=== PATIENT | female | born 1955 | race Caucasian/White ===

== ENCOUNTER 2016-10-12 04:56 | Inpatient (IN) | payer BC, OTHER ==
[2016-10-06 12:05] LABS: HEMATOCRIT 38.3 % (37.0-47.0); HEMOGLOBIN 12.8 gm/dL (12.0-15.0); MCH 29.8 pg (26.0-34.0); MCHC 33.3 g/dL (28.0-37.0); MCV 89.6 fL (80.0-100.0); RBC 4.27 mil/uL (4.20-5.00); RDW 14.4 % (10.5-14.5); WBC 7.8 thou/uL (4.0-11.0)
[2016-10-06 12:14] LABS: CALCIUM 9.3 mg/dL (8.5-10.1); CREATININE 0.8 mg/dL (0.6-1.0); POTASSIUM 4.4 mmol/L (3.5-5.1)
[2016-10-06 12:22] LABS: URINE BILIRUBIN NEGATIVE (Negative); URINE BLOOD NEGATIVE (Negative); URINE COLOR YELLOW; URINE GLUCOSE-RANDOM* NEGATIVE (Negative); URINE KETONES NEGATIVE (Negative); URINE LEUKOCYTES-REFLEX NEGATIVE (Negative); URINE PROTEIN (DIPSTICK) NEGATIVE (Negative); URINE UROBILINOGEN 0.2 E.U./dl (0.2-1.0)
[~2016-10-12] VITALS: Ht 172.7 cm; Wt 102.1 kg
[2016-10-12] VITALS (8 sets, daily range): BP systolic 110–132; BP diastolic 54–77
--- NOTE | ~2016-10-12 | O ---
[facility] [place] [address] OPERATIVE REPORT Name: MIKA DOWNS Room #: 547-P ADM IN M.R.#: [id number] Admission: 10/12/16 Attend Phys: Mervin Godwin MD Discharge: Date of : 51 Report #: [id number] THIS REPORT FOR: //name// CC: Mervin Godwin [facility] unknown DATE OF SERVICE: 10/12/2016 DATE OF SERVICE: 10/12/2016 PREOPERATIVE DIAGNOSIS: Degenerative arthritis, left hip. POSTOPERATIVE DIAGNOSIS: Degenerative arthritis, left hip. PROCEDURE: Left total hip arthroplasty. SURGEON: Mervin Godwin M.D. INDICATIONS: This 61-year-old female has problems with degenerative arthritis and already has left total knee and previous arthroscopic procedure on the operative site. She has now progressive left hip pain with clinical radiographic findings consistent with moderately severe degenerative arthritis. She has tried conservative measure without much benefit. We discussed treatment options and potential risks and benefits. She and her understand well and prefer to proceed with left total hip arthroplasty. DESCRIPTION OF PROCEDURE: The patient was taken to the operating room where she is placed under general anesthesia. Prophylactic intravenous antibiotics were administered. She was turned to the right lateral decubitus position. The left hip, thigh and leg were meticulously prepped and draped. A slightly curving lateral skin incision was made extending posteriorly from the greater trochanter. This was extended through subcutaneous tissues and fascia and the gluteus was spread bluntly exposing the posterior aspect of the hip joint. The short external rotators and joint capsule were taken down and tagged with several #2 Tevdek sutures. The hip was dislocated and rather marked degenerative change on both the femoral head and acetabulum was noted. There was some degenerative hypertrophic tearing of the labrum contributing to this as well. A femoral neck osteotomy was performed and the canal was prepared using reamers and hand broaches. The Rexter Secur-Fit hip system was utilized. A size 8 press-fit stem seemed to fit nicely. Attention was then directed to the acetabulum. The markedly hypertrophic and degenerative torn labrum was resected. Good exposure was established. The acetabulum was then sequentially reamed, gradually advancing to a size 53 mm reamer. A 54 mm fenestrated cup was then inserted, placing this and slightly greater anteversion then her true acetabulum and in about 45 degrees off of vertical. The cup seated nicely and appeared to be secure with initially impaction. This was supplemented with [address] [address] OPERATIVE REPORT Name: MIKA DOWNS Room #: 547-P ADM IN M.R.#: [id number] Admission: 10/12/16 Attend Phys: Mervin Godwin MD Discharge: Date of : 51 Report #: [id number] screws placed through the apex of the shell, which engage good ____ with excellent additional fixation. A 36-mm polyethylene liner was then snapped into place. The 10 mm hooded liner was used and the 10-degree elevation was placed at about the posterior 10 o'clock position. This was snapped into place and seated nicely and appeared to be secure. A trial reduction was performed using the size 8 femoral stem and optimum alignment, range of motion, stability was established with a lateral offset neck and a +10 mm neck length. The trial components were removed and the permanent size 8 Millie Secur-Fit stem was inserted, placing this in about 15-20 degrees of anteversion. It seated nicely and appeared to be very secure. A +10 mm neck length using a 36 mm stainless steel head was selected. This was impacted onto the Sharma taper and seated nicely and appeared to be secure. The hip was reduced and alignment, range of motion, stability and leg length seemed to be satisfactory. The wound was copiously irrigated. Good hemostasis was established. The short external rotators and capsule were then repaired back to bone using the #2 Tevdek sutures passed through small drill holes in the greater trochanter along its posterior edge. This resulted in excellent additional hip stability. A single Hemovac was left in the wound exiting through a separate stab incision. The fascia was then closed with multiple #1 Vicryl sutures. The subcutaneous tissues were closed with 0 Monocryl. The skin was closed with skin selam. A sterile dressing was applied. The patient was awakened and returned to recovery room in good condition. <ELECTRONICALLY SIGNED> By: Mervin Godwin MD 10/13/16 0657 [id number] 1304 Mervin Godwin MD /nt
--- NOTE | ~2016-10-12 | EKG ---
[address] [address] ELECTROCARDIOGRAM REPORT Name: MIKA DOWNS Room #: PRE IN [facility]#: [id number] Admission: Attend Phys: Mervin Godwin MD Discharge: Date of : 51 Report #: [id number] THIS REPORT FOR: //name// [facility] Test Date: 2016-10-06 Test Time: 10:40:19 Pat Name: MIKA DOWNS Department: Room: Gender: F Rn Compliance: Nancy SMITH : 1955 Requested By: Mervin Godwin Order Number: [id number] MD: Sohail Batista Measurements Intervals [place] Rate: 61 P: 55 NV: 158 QRS: -9 QRSD: 90 T: 27 QT: 395 QTc: 398 Interpretive Statements Sinus rhythm No previous ECG available for comparison Electronically Signed On 10-06-2016 12:59:30 CDT by Sohail Batista [email or web address] <ELECTRONICALLY SIGNED> By: Sohail Batista MD 10/06/16 1259 1040 1040 Sohail Batista MD /KANDICE
[~2016-10-12 04:56] MED LIST: AMBIEN 5 MG TABL5 M1 PO; ATIVAN1 MG PO; CARDIO OMEGA B1 EACH PO; CO Q-10100 MG PO; FISH OIL 1,001000 M2 PO; HYDROCODONE-ACE15 ML PO; MOBIC15 MG PO; MOVE FREE JOIN1 EACH PO; VITAMIN D-32000 UNIT PO
[2016-10-13] VITALS: BP 120/56
[2016-10-13 04:00] VITALS: BP 115/58
[2016-10-13 07:55] LABS: ABSOLUTE NEUTROPHILS 10.3 thou/uL (1.4-8.2); BASOPHILS 0.2 % (0.0-2.0); HEMATOCRIT 31.8 % (37.0-47.0); HEMOGLOBIN 10.7 gm/dL (12.0-15.0); LYMPHOCYTES 12.6 % (24.0-44.0); MCH 29.9 pg (26.0-34.0); MCHC 33.7 g/dL (28.0-37.0); MCV 88.8 fL (80.0-100.0); MONOCYTES 8.3 % (1.0-8.0); PLATELET COUNT 174 thou/uL (150-400); POLYS 78.9 % (36.0-66.0); RBC 3.58 mil/uL (4.20-5.00); RDW 14.2 % (10.5-14.5); WBC 13.1 thou/uL (4.0-11.0)
[2016-10-13 07:56] LABS: MANUAL DIFF NO
[2016-10-13 07:59] LABS: CALCIUM 8.5 mg/dL (8.5-10.1); CREATININE 0.9 mg/dL (0.6-1.0); MAGNESIUM 1.9 mg/dL (1.8-2.4); POTASSIUM 3.7 mmol/L (3.5-5.1)
[2016-10-13 08:23] VITALS: BP 140/56
[2016-10-13 16:31] VITALS: BP 120/59
[2016-10-13 20:00] VITALS: BP 121/58
[2016-10-14] VITALS: BP 121/53
[2016-10-14 06:09] LABS: HEMATOCRIT 30.8 % (37.0-47.0); HEMOGLOBIN 10.4 gm/dL (12.0-15.0); MCH 29.7 pg (26.0-34.0); MCHC 33.8 g/dL (28.0-37.0); MCV 87.9 fL (80.0-100.0); RBC 3.51 mil/uL (4.20-5.00); RDW 14.1 % (10.5-14.5)
[2016-10-14 07:44] VITALS: BP 99/56
[2016-10-14 19:27] VITALS: BP 134/73
[2016-10-15 05:12] VITALS: BP 119/64
[2016-10-15 05:45] LABS: HEMATOCRIT 29.5 % (37.0-47.0); MCH 29.7 pg (26.0-34.0); MCHC 33.9 g/dL (28.0-37.0); MCV 87.6 fL (80.0-100.0); RBC 3.37 mil/uL (4.20-5.00); RDW 14.1 % (10.5-14.5); WBC 12.9 thou/uL (4.0-11.0)
[2016-10-15 07:55] VITALS: BP 123/63
[2016-10-15 19:22] VITALS: BP 117/72
[2016-10-16 03:12] VITALS: BP 141/77
[2016-10-16 08:42] VITALS: BP 115/71
[2016-10-16 20:54] VITALS: BP 128/72
[2016-10-17 06:40] VITALS: BP 131/75
[2016-10-17 08:30] VITALS: BP 124/63
[2016-10-17 12:44] LABS: HEMATOCRIT 29.9 % (37.0-47.0); HEMOGLOBIN 10.2 gm/dL (12.0-15.0); MCH 29.9 pg (26.0-34.0); MCV 87.9 fL (80.0-100.0); RBC 3.4 mil/uL (4.20-5.00); WBC 6.9 thou/uL (4.0-11.0)
[2016-10-17 21:56] VITALS: BP 141/74
[2016-10-18 06:08] VITALS: BP 129/67
[2016-10-18 08:28] VITALS: BP 119/62
[2016-10-18 19:47] VITALS: BP 122/73
[2016-10-19 04:19] VITALS: BP 117/65
[2016-10-19 07:34] VITALS: BP 106/67
== END 2016-10-19 12:52 | disposition home health service (06) | DRG 470 ==
LOC: TBA 04:56 → 5S 04:56 → PRE 06:20 → 5S 13:19 → PRE 14:15 → 3N 10-18 15:14
PROVIDERS: Internal Medicine; Nurse Practitioner; Orthopaedic Surgery
PROC: 0SRB0JA Replacement of Left Hip Joint with Synthetic Substitute, Uncemented, Open Approach (ICD-10-PCS; principal; 2016-10-12)
DX: M16.12 Unilateral primary osteoarthritis, left hip (principal); F41.9 Anxiety disorder, unspecified; G47.00 Insomnia, unspecified; Z96.652 Presence of left artificial knee joint; K59.00 Constipation, unspecified; D72.829 Elevated white blood cell count, unspecified; E66.9 Obesity, unspecified; Z79.899 Other long term (current) drug therapy; Z88.1 Allergy status to other antibiotic agents; Z82.61 Family history of arthritis; Z68.34 Body mass index [BMI] 34.0-34.9, adult
CPT/HCPCS: 10785; 10795; 50010; 50101; 50382; 50414; 50455; 51412; 51771; 53000; 55388; 56521; 56525; 56527; 62110; 62900; 70005

== ENCOUNTER 2019-06-23 00:34 | Emergency (ER) | payer BC, OTHER ==
[~2019-06-23] VITALS: Ht 172.7 cm; Wt 108.9 kg
[2019-06-23] MEDS ORDERED: MELOXICAM15 MG PO (01:55)
[2019-06-23 01:56] VITALS: BP 152/85
[2019-06-23] MEDS ORDERED: NORCO 5-325 TA1 EAC1 PO (02:20)
== END 2019-06-23 03:20 | disposition home or self-care (01) ==
LOC: ER 00:34
DX: S89.81XA Other specified injuries of right lower leg, initial encounter (principal); Z98.890 Other specified postprocedural states; Z96.652 Presence of left artificial knee joint; Z96.642 Presence of left artificial hip joint; Z88.1 Allergy status to other antibiotic agents; X50.9XXA Other and unspecified overexertion or strenuous movements or postures, initial encounter; Y93.89 Activity, other specified; Y92.89 Other specified places as the place of occurrence of the external cause; Y99.8 Other external cause status

== ENCOUNTER → 2020-04-05 | Outpatient (CLI) | payer BC, OTHER ==
[~2020-04-05] MED LIST changes: +MELOXICAM15 MG PO; +NORCO 5-325 TA1 EAC1 PO
== END ==
LOC: LAB 09:22
PROVIDERS: ATTEND Anesthesiology
DX: Z01.812 Encounter for preprocedural laboratory examination (principal); Z20.828 Contact with and (suspected) exposure to other viral communicable diseases